=== PATIENT | female | born 1985 | race Caucasian/White ===

== ENCOUNTER 2016-10-13 06:07 | Inpatient (IN) | payer BC ==
[~2016-10-13] VITALS: Ht 175.3 cm; Wt 106.0 kg
--- NOTE | ~2016-10-13 | OR ---
PATIENT'S NAME: [facility] AGE: 31 Y [address] ROOM: [place] [address] [place] [facility] [place] [facility] [place]: 10/13/2016 OR/Procedure Report DISCHARGE DATE: FAMILY PHYSICIAN: Iglesia Montes De Oca ATTENDING PHYSICIAN: Shailesh Jane V SURGEON: Shailesh Jane MD QUALITY INSPECTOR: Rigoberto Goldberg M.D. DATE OF PROCEDURE: 10/13/2016 PREOPERATIVE DIAGNOSIS: Multinodular goiter. POSTOPERATIVE DIAGNOSIS: Multinodular goiter. OPERATIONS/PROCEDURES: 1. Total thyroidectomy. 2. Placement of EMG monitored endotracheal tube with intraoperative nerve monitoring (2 hours). ANESTHESIA: General endotracheal anesthesia. ESTIMATED BLOOD LOSS: Minimal. COMPLICATIONS: None. FINDINGS: The patient had a large multinodular goiter. DESCRIPTION OF PROCEDURE: The patient was taken to the operating room, laid in supine position with general endotracheal anesthesia with an EMG-monitored endotracheal tube. Ground electrodes placed in the right and left shoulder respectively. Impedance interferences were noted be within normal limits. Shoulder roll was placed. Head was placed in a sniffing position. Proposed incision line marked and infiltrated with 1% lidocaine with epinephrine solution. Neck was prepped and draped in the usual sterile fashion using Betadine solution. Impedance interferences were noted be within normal limits on the EMG monitor. Approximately, a 6 cm horizontal neck incision performed using a #15 blade. Subcutaneous tissues and platysma divided using #15 blade. Subplatysmal flap was elevated superiorly, inferiorly, and secured using 2-0 silk suture. Strap muscles were divided in the midline and reflected off to the right. The patient had a large midline isthmus mass. Subsequently, the strap muscles were reflected to the left. Adventitia along the left lateral lobe of the thyroid was divided using Harmonic scalpel. Thyroid lobe was reflected medially. Superior pole was dissected with a Harmonic scalpel. Superior thyroid vein divided with a Harmonic scalpel and reflected medially. Middle thyroid vein was divided. Attention was then turned inferiorly. Blunt dissection was performed. Inferior thyroid vessels were divided. The PATIENT'S NAME: [facility] AGE: 31 Y [address] ROOM: [place] [address] [place] [facility] [place]: 10/13/2016 OR/Procedure Report DISCHARGE DATE: FAMILY PHYSICIAN: Iglesia Montes De Oca ATTENDING PHYSICIAN: Shailesh Jane V inferior parathyroid was reflected off the inferior aspect of the thyroid lobe and left intact. Dissection was then performed underneath the undersurface of the gland. Additional parathyroid was felt to be encountered, this was reflected laterally. Recurrent laryngeal nerve was identified confirmed using a stimulus probe. The recurrent laryngeal nerve was followed superiorly up to the cricothyroid. The isthmus was divided on the left. Superior thyroid lobe was reflected medially. There was a significant amount of thyroid tissue firmly attached to the recurrent laryngeal nerve. This was . The Dalton ligament was crossclamped and suture ligated using a 3-0 silk suture. Thyroid lobe was removed. The recurrent laryngeal nerve was stimulated with a poor train of response. The nerve was followed superiorly and inferiorly and noted to be completely intact. Attention was then turned to the right. Strap muscles reflected off the right. The large isthmus mass along with the right thyroid lobe was reflected to the left. Adventitia was divided using Harmonic scalpel and middle thyroid vein was divided. Superior thyroid pole was divided using a harmonic scalpel and thyroid lobe was reflected medially. Blunt dissection was then performed along the inferior pole. Recurrent laryngeal nerve was identified. Adventitia was divided along the inferior pole. Recurrent laryngeal nerve followed superiorly up to the cricothyroid. The Dalton ligament was crossclamped with a hemostat, divided using #15 blade. Specimen was sent for permanent pathology. Dalton ligament was suture ligated using 3-0 silk suture. Recurrent laryngeal nerve was stimulated and noted to be intact with good train of response. Neck was irrigated with copious amounts of bacitracin solution. Surgicel was placed over the cricothyroid ligament, right and left respectively. Drain was placed through a separate inferior stab incision, secured using 2-0 silk suture. Strap muscles were then approximated using interrupted 3-0 Vicryl suture. Platysma reapproximated with interrupted 3-0 Vicryl. Skin closure performed with 4-0 PDS. Steri-Strips and occlusive dressing were applied. The patient was aroused, extubated, and discharged from the operating room to the recovery room in satisfactory condition. MD ILAN DUPREE/modl /[id number] d: 10[birth year]13/165 t: 10/23/16 1308, OPERATIVE SUMMARY
[~2016-10-13 06:07] MED LIST: ADDERALL XR 3030 MG PO; BUSPAR10 MG PO; LAMICTAL100 MG PO; NEURONTIN100 MG PO; NICODERM/HABITR21 MG TRANS; SEROQUEL200 MG PO; SEROQUEL50 MG PO; ZORVOLEX35 MG PO; [UNRECOGNIZED DRUG - OTHER] PO
[2016-10-13 07:08] LABS: CALCIUM 8.3 mg/dL (8.5-10.5)
--- NOTE | 2016-10-13 16:35 | NUR ---
Significant Event: PT ARRIVED FROM PACU AT 1145, TOTAL THYROIDECTOMY FOR DR MCGRAW. DRESSING TO ANTERIOR NECK, CDI. FARIBA DRAIN. IVF RUNNING TO R HAND, PRN MORPHINE X2, PRN NORCO X1. TOLERATED CLEAR LIQUIDS, INCREASED TO REGULAR DIET. ICE TO NECK PRN. UP WITH SBA. LABS ORDERED AT 1700, RESULTS NEED CALLED TO MD. Follow up: SALINE LOCK IV WHEN DOT PO, PAIN CONTROL
--- NOTE | 2016-10-14 05:43 | NUR ---
SIGNIFICANT EVENT: VSS. Q4HRS POST-OP. IV R) WRIST SL. FARIBA DRAIN WITH BLOODY DRAINAGE, 35ML. NORCO LAST @ 2319. MORPHINE IV 2MG GIVEN X3 THIS SHIFT, LAST @023. INDEPENDENT WITH TRANSFERS. ICE TO NECK PRN.
--- NOTE | 2016-10-14 17:42 | NUR ---
Significant Event: PT AO. VSS ON RA, AFEBRILE. GAVE 2GM IV CALCIUM GLUCONATE THIS AM, RECHECKED LABS AT 1600 AND CALLED TO . GAVE ANOTHER 1GM IV CALCIUM GLUCONATE NOW. OTHERWISE IV SALINE LOCKED. DRESSING TO ANTERIOR NECK, C/D/I. FARIBA DRAIN. PT UP AD YISEL. SHOWERED THIS AM. ORDERS FOR OK TO GO OUTSIDE, OUTSIDE WITH X2 TODAY. PRN NORCO X2, LAST AT 1410, PRN MORPHINE X3, LAST AT 1551. Follow up: LABS IN AM
--- NOTE | 2016-10-14 17:46 | NUR ---
Significant Event: Patient alert and oriented, vital signs stable on room air.
--- NOTE | 2016-10-15 08:59 | NUR ---
SIGNIFICANT EVENT: VSS. IV R) WRIST SL. FARIBA DRAIN WITH BLOODY DRAINAGE, 25ML. MORPHINE Q1H, LAST 0200. NORCO Q4H, LAST @0500. INDEPENDENT. WAITING ON CALCIUM LABS TO INCREASE.
--- NOTE | 2016-10-15 15:33 | NUR ---
Significant Event: PT AO. VSS ON RA, AFEBRILE. FARIBA DRAIN TO ANTERIOR NECK, INCISION TO ANTERIOR NECK. DRESSINGS C/D/I. UP AD YISEL IN ROOM. AT BEDSIDE. IV SALINE LOCKED. PRN NORCO X2, LAST AT 1504. PRN MS X2, LAST AT 1120. PT C/O POSSIBLE BUG BITES TO SIDES, DENIES SEEING ANY BUGS IN ROOM. OFFERED TO CHANGE BED SHEETS, PT REFUSED. TOLERATING REGULAR DIET. CA LEVEL TO BE DRAWN AT 1600 AND CALLED TO . NO EXTRA IV CALCIUM GAVE THIS SHIFT. SUTURE REMOVAL KIT AT THE BEDSIDE. Follow up: LABS IN AM
--- NOTE | 2016-10-16 04:07 | NUR ---
Significant Event: Alert/oriented x3. Possible DC to home today. Voids well independently via bath room. FARIBA drain - 10 mls. VSS room air. Dressing C/D/I. IV saline locked in right hand. Pain controlled effectively with Morphine 2mg IVP at 2243; 2 Norcos at 1925, 2 at 0401. No CA IV given this shift. Suture Removal kit at bedside. Follow up:
[2016-10-16] MEDS ORDERED: ROCALTROL0.25 MCG PO (09:33)
[2016-10-16] MEDS ORDERED: OSCAL500 MG PO (09:36)
[2016-10-16] MEDS ORDERED: LEVOTHROID (S150 MCG PO (09:38)
--- NOTE | 2016-10-16 11:08 | NUR ---
PT. DISCHARGE INSTRUCTIONS GIVEN AD VERBALIZED UNDERSTANDING OF BY PT AND . DR. MCGRAW'S OFFICE CALLED BY PT. FOR PAIN MEDICATION PRESCRIPTION TO BE CALLED TO PT PHARMACY IN [place]. AD YISEL IN ROOM. IV D/C'D PER DISCHARGE. STATES HAD BM THIS MORNING. STATES THROAT FEELS SORE. FARIBA D/C'D BY THIS MORNING AND 4X4 GAUZE DRESSING SLIGHTLY MARKED. DISCHARGED PER PEDIS PER PT REQUEST TO FRONT DOOR WITH .
== END 2016-10-16 11:00 | disposition disaster alternative care site (69) | DRG 627 ==
LOC: GMSU 06:07 → GSDC 06:07 → GPOC 10:00 → GMSU 12:27 → GSDC 12:28 → GMSU 12:28
PROVIDERS: ADMIT Otolaryngology
PROC: 4A11X4G Monitoring of Peripheral Nervous Electrical Activity, Intraoperative, External Approach (ICD-10-PCS; principal; 2016-10-13)
PROC: 0GTK0ZZ Resection of Thyroid Gland, Open Approach (ICD-10-PCS; principal; 2016-10-13)
DX: E04.2 Nontoxic multinodular goiter (principal); E83.51 Hypocalcemia; F17.200 Nicotine dependence, unspecified, uncomplicated; F41.9 Anxiety disorder, unspecified; F32.9 Major depressive disorder, single episode, unspecified
CPT/HCPCS: J0610; J1100; J2001; J2270; J2405; J7030; J7040; J7050